=== PATIENT | male | born 1950 | race Caucasian/White ===

== ENCOUNTER 2022-10-06 10:42 | Outpatient (REF) | payer MEDICARE, SELFPAY ==
--- NOTE | 2022-10-06 12:00 | SKI_PTH ---
PATIENT: Cachorro Yee LOC: [facility]#:[id number] AGE/SX: 72/M ROOM: RE10/06/[address]: Eleni Boston : 1950 BED: DIS: 10/06/2022 SPEC #: [id number] RECD: 10/07/22 12:49 STATUS: BLAKE REDarryn #: [id number] JANESSA: 10/06/22 12:[address]: Eleni Casas DEPT: Surgical Specimen RECD BY: Sandee Bocanegra ENTERED: 10/07/22 12:50 SP TYPE: AMARI BREWER DR: James Gonzalez Tissues: 1 - SKIN BIOPSY(SHAVE/PUNCH) 2 - SKIN BIOPSY(SHAVE/PUNCH) Procedures: SKIN LEVEL 4 Comments: [id number]
[2022-10-06 14:10] LABS: HCT 45.5 % (40.0-50.0); HGB 15.4 g/dL (13.5-17.5); MCH 30.9 pg (27.0-33.0); MCHC 33.8 % (32.0-36.0); MCV 91 fL (80-95); MPV 10.8 fL (8.0-11.0); Platelet Count 226 10^3/uL (130-400); RBC 4.99 10^6/uL (4.36-5.78); RDW 11.9 % (11.8-14.1); RDW-SD 39.4 fL; WBC 6.02 10^3/uL (4.4-10.8)
[2022-10-06 14:39] LABS: Anion Gap 5.6 mmol/L (3-11); BUN 15 mg/dL (7-18); CO2 31.4 mmol/L (21.0-32.0); Calcium 9.4 mg/dL (8.5-10.1); Calculated LDL 41 mg/dL (<100); Chloride 106 mmol/L (98-107); Cholesterol 112 mg/dL (<200); Estimated GFR 80.47 (mL/min/1.73m2); Glucose 87 mg/dL (74-106); HDL Cholesterol 65 mg/dL (40-60); Potassium 4.7 mmol/L (3.5-5.1); Sodium 143 mmol/L (136-145); Triglyceride 33 mg/dL (<150)
== END 2022-10-06 10:43 | disposition home or self-care (01) ==
LOC: NCHCN 10:42
PROVIDERS: PCP Family Medicine; Visit Provider Nurse Practitioner Family
DX: I25.10 Atherosclerotic heart disease of native coronary artery without angina pectoris (principal); L82.1 Other seborrheic keratosis
CPT/HCPCS: 80048; 80061; 85027; 88305

== ENCOUNTER 2023-05-23 19:14 | Outpatient (REF) | payer MEDICARE, SELFPAY ==
[2023-05-23 15:23] LABS: Bacteria Negative HPF (Negative); C & S Indicated? No; Casts Negative LPF (Negative); Crystals Negative HPF (Negative); Epithelial Cells Rare HPF (Negative); Mucus Negative (Negative); RBC Negative HPF (0-2); WBC Negative HPF (0-5)
== END 2023-05-23 19:15 | disposition home or self-care (01) ==
LOC: NCHCN 19:14
PROVIDERS: PCP Family Medicine; Visit Provider Nurse Practitioner Family
DX: R10.9 Unspecified abdominal pain (principal)
CPT/HCPCS: 81015